=== PATIENT | male | born 2000 | race Caucasian/White ===

== ENCOUNTER 2018-01-23 19:22 | Emergency (ER) | payer OTHER ==
[~2018-01-23] VITALS: Ht 188 cm; Wt 79.4 kg
[2018-01-23] MEDS ORDERED: PREDNISONE20 MG (19:35)
[2018-01-23] MEDS ORDERED: WAL ITIN D (19:36)
== END 2018-01-23 21:29 | disposition home or self-care (01) ==
LOC: ER 19:22
DX: S61.412A Laceration without foreign body of left hand, initial encounter (principal); W45.8XXA Other foreign body or object entering through skin, initial encounter; Y93.89 Activity, other specified; Y92.098 Other place in other non-institutional residence as the place of occurrence of the external cause; Y99.8 Other external cause status